=== PATIENT | male | born 1955 | race Caucasian/White ===

== ENCOUNTER 2018-11-14 06:54 | Emergency (ER) | payer OTHER ==
[~2018-11-14] VITALS: Ht 180.3 cm; Wt 122.5 kg
[2018-11-14] MEDS ORDERED: NORVASC10 MG (06:56)
[2018-11-14] MEDS ORDERED: CARDURA8 MG (06:56)
== END 2018-11-14 10:24 | disposition home or self-care (01) ==
LOC: ER 06:54
DX: S20.212A Contusion of left front wall of thorax, initial encounter (principal); S20.211A Contusion of right front wall of thorax, initial encounter; S80.01XA Contusion of right knee, initial encounter; V49.9XXA Car occupant (driver) (passenger) injured in unspecified traffic accident, initial encounter; Y93.89 Activity, other specified; Y92.488 Other paved roadways as the place of occurrence of the external cause; Y99.8 Other external cause status